=== PATIENT | male | born 1985 | race Caucasian/White ===

== ENCOUNTER 2019-04-12 19:38 | Emergency (ER) | payer OTHER ==
[2019-04-12 19:45] VITALS: BP 123/81; PULSE 60; TEMP 97.9; BMI 23.6
--- NOTE | 2019-04-12 19:46 | PDOC ---
Rapid Medical Evaluation Chief Complaint: Eye Problem Time Seen by Provider: 04/12/19 19:43 Medical Evaluation: Allergies Allergy/AdvReac Type Severity Reaction Status Date / Time No Known Allergies Allergy Verified 04/12/19 19:45 Vital Signs Temp Pulse Resp BP Pulse Ox 97.9 F 60 20 123/81 99 04/12/19 19:42 04/12/19 19:42 04/12/19 19:42 04/12/19 19:42 04/12/19 19:42 04/12/19 19:45 Patient complains of: rt eye tearing after rubbing, now red Patient on brief exam: inflamed rt conjuctiva with scleral redness, noted excessive tearing, eomi Patient ordered for: none Patient to proceed to the ED Discharge Disposition - Diagnosis Eye redness - Referrals - Patient Instructions - Post Discharge Activity
[2019-04-12] MEDS ORDERED: FLUORESCEIN NA 1 EA STRIP ONE (20:20)
[2019-04-12] MEDS ORDERED: DIPHTH,PERTUSS(ACELL),TET 0.5 ML DISP.SYRIN IM ONE ×2 (20:25→20:31)
--- NOTE | 2019-04-12 20:27 | PDOC ---
History of Present Illness - General Chief Complaint: Eye Problem Stated Complaint: RIGHT EYE CRYING Time Seen by Provider: 04/12/19 19:43 - History of Present Illness Initial Comments: 04/12/19 20:24 33-year-old male without comorbidities unsure of his current tetanus status presents for evaluation of right eye irritation after piece of plastic irritated him yesterday which he feels still in place. He complains of right eye pain. Past History - Past Medical History Allergies/Adverse Reactions: Allergies Allergy/AdvReac Type Severity Reaction Status Date / Time No Known Allergies Allergy Verified 04/12/19 19:45 Home Medications: Ambulatory Orders Penicillin V Potassium [Pen Vee K] 500 mg PO BID #20 tablet 01/02/12 Tobramycin 0.3% Ophth Soln [Tobrex Ophthalmic Solution -] 1 drop OS Q4HWA 5 Days #1 bottle 04/12/19 COPD: No - Immunization History Immunization Up to Date: Yes - Suicide/Smoking/Psychosocial Hx Smoking Status: No Smoking History: Never smoked Have you smoked in the past 12 months: No Number of Cigarettes Smoked Daily: 0 Information on smoking cessation initiated: No Hx Alcohol Use: No Drug/Substance Use Hx: No Review of Systems - Review of Systems HEENTM: Yes: Blurred Vision, Tearing, Recent change in vision. No: Double Vision, Cataracts, Ear Pain *Physical Exam - Vital Signs Last Vital Signs Temp Pulse Resp BP Pulse Ox 97.9 F 60 20 123/81 99 04/12/19 19:42 04/12/19 19:42 04/12/19 19:42 04/12/19 19:42 04/12/19 19:42 - Physical Exam Comments: 04/12/19 20:25 The right eye is injected, fluoresceins stain instilled after tetracaine was used to anesthetize the eye. There is a large corneal abrasion in the middle of the eye. No foreign bodies appreciated. Medical Decision Making - Medical Decision Making 04/12/19 20:25 tobramycin for corneal abrasion, ophthalmology follow-up tomorrow without fail. *DC/Admit/Observation/Transfer Diagnosis at time of Disposition: Eye redness, Corneal abrasion - Discharge Dispostion Disposition: HOME Condition at time of disposition: Stable Decision to Admit order: No - Prescriptions Prescriptions: Tobramycin 0.3% Ophth Soln [Tobrex Ophthalmic Solution -] 1 drop OS Q4HWA 5 Days #1 bottle - Referrals Referrals: Bruno Medina [Non Staff, Medical] - Yrn Dee [Non Staff, Medical] - Chong Frederick [Staff Physician] - Shayy Eaton MD [Staff Physician] - Rl Shaikh MD [Staff Physician] - Rl Shaikh MD [Staff Physician] - Marcella Camacho MD [Non Staff, Medical] - Jeremiah Warren MD [Staff Physician] - Janna Hardy MD [Staff Physician] - Delfino Mason MD, MD [Non Staff, Medical] - Yrn Renner MD [Non Staff, Medical] - - Patient Instructions Printed Discharge Instructions: DI for Corneal Abrasion, Corneal Abrasion Additional Instructions: Please use the antibiotic eye ointment as directed for the next 5 days. Follow- up with ophthalmology tomorrow without fail for further evaluation and treatment options and return to the emergency room should symptoms worsen. - Post Discharge Activity
== END 2019-04-12 20:35 | disposition home or self-care (01) ==
LOC: JER 19:38 → JERFT 19:38
PROC: 3E0234Z Introduction of Serum, Toxoid and Vaccine into Muscle, Percutaneous Approach (ICD-10-PCS; principal; 2019-04-12)
DX: S05.01XA Injury of conjunctiva and corneal abrasion without foreign body, right eye, initial encounter (principal); W22.8XXA Striking against or struck by other objects, initial encounter; Y93.89 Activity, other specified; Y92.89 Other specified places as the place of occurrence of the external cause; Y99.8 Other external cause status
CPT/HCPCS: 90471; 90715; 99281-25